=== PATIENT | female | born 1925 | race Caucasian/White ===

== ENCOUNTER 2016-04-30 07:27 | Inpatient (IN) | payer MEDICARE, OTHER ==
[~2016-04-30] VITALS: Ht 152.4 cm; Wt 66.2 kg
[2016-04-30] MEDS ORDERED: LOSARTAN POTASS25 MG ORAL (08:05)
[2016-04-30] MEDS ORDERED: NAMENDA5 MG ORAL (08:05)
[2016-04-30] MEDS ORDERED: RISPERDAL0.25 MG ORAL (08:05)
[2016-04-30] MEDS ORDERED: MECLIZINE HCL12.5 MG ORAL (08:05)
[2016-04-30] MEDS ORDERED: NUEDEXTA 20-101 EAC1 PO (08:05)
[2016-04-30] MEDS ORDERED: SIMVASTATIN5 MG ORAL (08:05)
[2016-04-30] MEDS ORDERED: ALLOPURINOL100 M1 ORAL (08:05)
[2016-04-30] MEDS ORDERED: ALENDRONATE SOD10 MG ORAL (08:05)
[2016-04-30 08:42] VITALS: BP 138/76
[2016-04-30 08:52] LABS: BASOPHILS % (AUTO) 0.9 % (0.0-2.0); LYMPHOCYTES % (AUTO) 19.7 % (20.0-45.0); MEAN CORPUSCULAR HEMOGLOBIN 28.1 PG (27.0-31.0); MEAN CORPUSCULAR HGB CONC 31.3 G/DL (32.0-36.0); MEAN CORPUSCULAR VOLUME 90 FL (80-99); MEAN PLATELET VOLUME 6.1 FL (6.5-10.1); NEUTROPHILS % (AUTO) 71.4 % (45.0-75.0); PLATELET COUNT 417 K/UL (150-450); RED BLOOD COUNT 4.41 M/UL (4.20-5.40); RED CELL DISTRIBUTION WIDTH 13.8 % (11.6-14.8); WHITE BLOOD COUNT 6.6 K/UL (4.8-10.8)
[2016-04-30 08:56] LABS: APPEARANCE,URINE CLEAR; KETONES,URINE NEGATIVE (NEGATIVE); LEUKOCYTE ESTERASE ,URINE NEGATIVE (NEGATIVE); NITRITE,URINE NEGATIVE (NEGATIVE); PH,URINE 6 (4.5-8.0); PROTEIN,URINE NEGATIVE (NEGATIVE); UROBILINOGEN,URINE NORMAL MG/DL (0.0-1.0)
[2016-04-30 09:07] LABS: BACTERIA,URINE OCCASIONAL /HPF; SQUAMOUS EPITHELIAL CELL,UR OCCASIONAL /LPF (NONE/OCC); WBC,URINE 0-2 /HPF (0 - 2)
[2016-04-30 09:07] LABS: ALANINE AMINOTRANSFERASE 44 U/L (3-33); ALBUMIN/GLOBULIN RATIO 1.4 (1.0-2.7); AMYLASE 73 U/L (10-110); ANION GAP 17 (5-15); ASPARTATE AMINO TRANSFERASE 28 U/L (5-40); CALCIUM 8.9 mg/dL (8.6-10.2); CARBON DIOXIDE 27 mEQ/L (20-30); CHLORIDE 94 mEQ/L (98-107); HEMOLYSIS 9; LIPASE 32 U/L (< 60); MAGNESIUM 2.2 mg/dL (1.7-2.5); PHOSPHORUS 2.7 mg/dL (2.5-4.8); POTASSIUM 3.8 mEQ/L (3.4-4.9); SODIUM 138 mEQ/L (135-145); TOTAL PROTEIN 6.7 g/dL (6.6-8.7)
[2016-04-30 09:08] LABS: TROPONIN I < 0.30 ng/mL (<=0.30)
[2016-04-30 09:10] LABS: REFLEX LACTIC ACID YES OR NO YES
--- NOTE | 2016-04-30 09:16 | Emergency Room Report ---
History of Present Illness General Chief Complaint: Generalized Weakness Source: Family Member Present Illness HPI The patient is an 89-year-old female brought in by family members for increased generalized weakness and confusion. Patient had gradual onset of symptoms. Patient had been increasingly confused and having difficulty with ambulation. Patient was noted a prior history of hypertension. Patient was noted be afebrile. She had not been vomiting. She denies any pain at this time. Allergies: Coded Allergies: No Known Allergies (Unverified , 04/30/16) Patient History Past Medical History: see triage record Reviewed Nursing Documentation: PMH: Agreed, PSxH: Agreed Nursing Documentation-PMH Hx Hypertension: Yes Review of Systems All Other Systems: limited - by mental status Physical Exam Vital Signs Date Time Temp Pulse Resp B/P Pulse Ox O2 Delivery O2 Flow Rate FiO2 04/30/16 07:50 98.8 77 16 126/77 97 Room Air Sp02 EP Interpretation: reviewed, normal General Appearance: normal inspection, well appearing, no apparent distress, alert, obese Head: atraumatic ENT: normal ENT inspection, hearing grossly normal, normal voice Neck: normal inspection, full range of motion, supple, no bony tend Respiratory: normal inspection, lungs clear, normal breath sounds, no respiratory distress, no retraction, no wheezing Cardiovascular #1: regular rate, rhythm, no edema Gastrointestinal: normal inspection, normal bowel sounds, non tender, soft, no guarding, no hernia Genitourinary: no CVA tenderness Musculoskeletal: normal inspection, back normal, normal range of motion Neurologic: normal inspection, alert, responsive, speech normal Psychiatric: normal inspection, judgement/insight normal, mood/affect normal Skin: normal inspection, normal color, no rash Medical Decision Making Diagnostic Impression: Primary Impression: General weakness Additional Impression: Lactic acidosis ER Course Patient presented for generalized weakness. Differential diagnosis included was not limited to anemia, urinary tract infection, electrolyte abnormality, hypothyroidism, myocardial infarction, myasthenia gravis, dehydration, among others. Because of complexity of patient's case laboratory testing and imaging studies were ordered. Patient was noted to have laboratory testing was notable for elevated lactic acid level. The patient was noted to have a normal white blood count is afebrile at this time. Patient was noted to have some confusion. The patient has no clear source for any infection. Dr. Deric Cisneros was contacted for inpatient management Laboratory Tests Test 04/30/16 08:10 04/30/16 08:30 White Blood Count 6.6 K/UL (4.8-10.8) Red Blood Count 4.41 M/UL (4.20-5.40) Hemoglobin 12.4 G/DL (12.0-16.0) Hematocrit 39.5 % (37.0-47.0) Mean Corpuscular Volume 90 FL (80-99) Mean Corpuscular Hemoglobin 28.1 PG (27.0-31.0) Mean Corpuscular Hemoglobin Concent 31.3 G/DL (32.0-36.0) L Red Cell Distribution Width 13.8 % (11.6-14.8) Platelet Count 417 K/UL (150-450) Mean Platelet Volume 6.1 FL (6.5-10.1) L Neutrophils (%) (Auto) 71.4 % (45.0-75.0) Lymphocytes (%) (Auto) 19.7 % (20.0-45.0) L Monocytes (%) (Auto) 8.0 % (1.0-10.0) Eosinophils (%) (Auto) 0.0 % (0.0-3.0) Basophils (%) (Auto) 0.9 % (0.0-2.0) Sodium Level 138 mEQ/L (135-145) Potassium Level 3.8 mEQ/L (3.4-4.9) Chloride Level 94 mEQ/L (98-107) L Carbon Dioxide Level 27 mEQ/L (20-30) Anion Gap 17 (5-15) H Blood Urea Nitrogen 19 mg/dL (7-23) Creatinine 1.0 mg/dL (0.5-0.9) H Estimate Glomerular Filtration Rate mL/min (>60) Glucose Level 103 mg/dL (74-106) Lactic Acid Level 2.20 mmol/L (0.66-2.22) Calcium Level 8.9 mg/dL (8.6-10.2) Phosphorus Level 2.7 mg/dL (2.5-4.8) Magnesium Level 2.2 mg/dL (1.7-2.5) Total Bilirubin 0.4 mg/dL (0.0-1.2) Aspartate Amino Transferase (AST) 28 U/L (5-40) Alanine Aminotransferase (ALT) 44 U/L (3-33) H Alkaline Phosphatase 49 U/L (35-104) Total Creatine Kinase 139 U/L (26-140) Creatine Kinase MB Pending Troponin I < 0.30 ng/mL (<=0.30) Pro-B-Type Natriuretic Peptide Pending Total Protein 6.7 g/dL (6.6-8.7) Albumin 4.0 g/dL (3.5-5.2) Globulin 2.7 g/dL Albumin/Globulin Ratio 1.4 (1.0-2.7) Amylase Level 73 U/L (10-110) Lipase 32 U/L (< 60) Urine Color Pale yellow Urine Appearance Clear Urine pH 6 (4.5-8.0) Urine Specific [place] 1.010 (1.005-1.035) Urine Protein Negative (NEGATIVE) Urine Glucose (UA) Negative (NEGATIVE) Urine Ketones Negative (NEGATIVE) Urine Occult Blood 2+ (NEGATIVE) H Urine Nitrite Negative (NEGATIVE) Urine Bilirubin Negative (NEGATIVE) Urine Urobilinogen Normal MG/DL (0.0-1.0) Urine Leukocyte Esterase Negative (NEGATIVE) Urine RBC 2-4 /HPF (0 - 2) H Urine WBC 0-2 /HPF (0 - 2) Urine Squamous Epithelial Cells Occasional /LPF Urine Bacteria Occasional /HPF (NONE) Chest X-Ray Diagnostic Results EP Interpretation: Yes Findings: no consolidation, no effusion, no pneumothorax, no acute cardiopulmonary disease Number of Views: 1 Last Vital Signs Date Time Temp Pulse Resp B/P Pulse Ox O2 Delivery O2 Flow Rate FiO2 04/30/16 08:42 98.8 78 16 138/76 97 Room Air Status: unchanged Disposition: ADMITTED INPATIENT Condition: Serious Referrals: NON PHYSICIAN (PCP) Ruddy Martin Apr 30, 2016 09:16
[2016-04-30 09:18] LABS: CKMB 2.9 ng/mL (< 3.8)
[2016-04-30 10:03] VITALS: BP 143/59
--- NOTE | 2016-04-30 11:13 | History & Physical ---
History and Physical History & Physicial HP dictated # [id number] ANAMARIA CHACKO Apr 30, 2016 11:13
[2016-04-30] MEDS ORDERED: Milk of Magnesia 30ml Ud ORAL PRN (11:30)
[2016-04-30 11:50] VITALS: BP 153/68
[2016-04-30] MEDS: Irbesartan 150mg tablet ORAL SCH (13:31)
[2016-04-30] MEDS: Memantine 10mg tab ORAL SCH (13:31)
[2016-04-30] MEDS: RisperiDONE 0.25mg tab ORAL SCH (13:32)
--- NOTE | 2016-04-30 15:17 | Diagnostic Imaging Report ---
Indication: SOB Technique: One view of the chest Comparison: none Findings: Patient's chin obscures the upper mediastinum and to a slight extent the lung apices. Inspiration is suboptimal. No definite infiltrate, effusion, or congestion. Impression: Somewhat limited exam. No definite acute process
[2016-04-30 15:52] VITALS: BP 158/69
--- NOTE | 2016-04-30 17:39 | History and Physical Report ---
DATE OF ADMISSION: 04/30/2016 CHIEF COMPLAINT: Generalized weakness, increasing confusion, failure to thrive HISTORY OF PRESENT ILLNESS: The patient is an 89-year-old [place] female, who lives with a caregiver. The patient has a history of Alzheimer's dementia which started about 9 years ago. Over the time, the patient has been getting worse in terms of her mental function. She sometimes even forgets the relationship to her son although she usually follows commands. She has also recently getting more difficulty getting out of bed and ambulating and needs a lot of help and this has been going on for about a month now and the patient has been getting more confused and weak. The patient finally was brought in by family to the emergency room. PAST MEDICAL HISTORY: Includes history of osteoporosis, hypertension, history of Alzheimer disease. SOCIAL HISTORY: No history of smoking or alcohol abuse. MEDICATIONS: Reviewed in the EMR. REVIEW OF SYSTEMS: Unobtainable. PHYSICAL EXAMINATION: GENERAL: The patient is an elderly female, in no acute distress. VITAL SIGNS: Blood pressure is 126/77, pulse 77, temperature 98.8, respiratory 16. HEENT: [place] conjunctivae. Anicteric sclerae. NECK: Supple. LUNGS: Clear to auscultation. HEART: S1 and S2 without murmurs or rubs. ABDOMEN: Soft and nontender. EXTREMITIES: No cyanosis or edema. LABORATORY FINDINGS: CBC shows a WBC of 6.6, hematocrit 39.5, hemoglobin 12.4, and platelet 417,000. The chemistry panel shows serum sodium 138, potassium 3.8, chloride 94, CO2 of 27, BUN is 19, creatinine 1.0, and glucose is 103. Lactic acid is 2.2, phosphorus 2.7, magnesium 2.2. AST 28, ALT 44. Albumin is 4. UA shows 2 to 4 RBCs per high-power field, 0 to 2 WBCs, otherwise unremarkable. ASSESSMENT: The patient is an 89-year-old [place] female, who was brought to the emergency room for failure to thrive, confusion, recent inability to walk. PLAN: The patient will be admitted. She will be seen by physical therapy. I will order a TSH to make sure the patient is hypothyroid. Dietitian will see the patient to see if she is taking adequate nutrition. Case was discussed with the family and all questions were answered. Deric Cisneros M.D. DR: Esperanza JOB#: [id number] CC: DAR
[2016-04-30 20:22] VITALS: BP 127/60
[2016-05-01] VITALS: BP 143/72
[2016-05-01] MEDS: ALENDRONATE 10 MG ORAL SCH (06:25)
[2016-05-01 06:46] LABS: CHOLESTEROL/HDL RATIO 2.9 (3.3-4.4)
[2016-05-01 06:59] LABS: THYROID STIMULATING HORMONE 3.48 uIU/mL (0.300-4.500)
[2016-05-01 07:32] LABS: HEMOGLOBIN A1C 5.3 % (< 6.0)
[2016-05-01 08:00] VITALS: BP 137/98
[2016-05-01] MEDS: LORazepam 0.5mg tab ORAL PRN (09:18)
[2016-05-01] MEDS: Irbesartan 150mg tablet ORAL SCH (09:18)
[2016-05-01] MEDS: RisperiDONE 0.25mg tab ORAL SCH (09:18)
[2016-05-01] MEDS: Memantine 10mg tab ORAL SCH (09:18)
[2016-05-01 12:00] VITALS: BP 145/76
[2016-05-01 15:41] LABS: APPEARANCE,URINE TURBID; KETONES,URINE NEGATIVE (NEGATIVE); LEUKOCYTE ESTERASE ,URINE 3+ (NEGATIVE); NITRITE,URINE NEGATIVE (NEGATIVE); PH,URINE 7 (4.5-8.0); PROTEIN,URINE 4+ (NEGATIVE); UROBILINOGEN,URINE NORMAL MG/DL (0.0-1.0)
[2016-05-01 15:48] LABS: RBC,URINE TNTC /HPF (0 - 2); WBC,URINE TNTC /HPF (0 - 2)
[2016-05-01 15:49] LABS: BACTERIA,URINE MANY /HPF
[2016-05-01 16:00] VITALS: BP 150/98
[2016-05-01 20:00] VITALS: BP 158/70
--- NOTE | 2016-05-01 20:19 | General Progress Note ---
Assessment/Plan Problem List: (1) Failure to thrive SNOMED: 47650923 (2) UTI (urinary tract infection) ICD Codes: N39.0 - Urinary tract infection, site not specified SNOMED: 39973622 (3) General weakness ICD Codes: R53.1 - Weakness SNOMED: 52371227 Assessment/Plan Abxs PT will follow Subjective Allergies: Coded Allergies: No Known Allergies (Unverified , 04/30/16) Subjective In NAD Objective Last 24 Hour Vital Signs Date Time Temp Pulse Resp B/P Pulse Ox O2 Delivery O2 Flow Rate FiO2 05/01/16 16:00 99.0 102 20 150/98 96 Room Air 05/01/16 12:00 97.3 94 20 145/76 96 Room Air 05/01/16 09:18 137/98 05/01/16 08:00 97.3 86 20 137/98 97 Room Air 05/01/16 00:00 97.2 20 143/72 98 Room Air 04/30/16 20:22 97.8 70 18 127/60 100 Room Air Intake and Output 04/30/16 05/01/16 19:00 07:00 Intake Total 480 ml 120 ml Balance 480 ml 120 ml Intake Oral 480 ml 120 ml # Voids 3 5 # Bowel Movements 1 Laboratory Tests 05/01/16 04:30: Hemoglobin A1c 5.3, Triglycerides Level 115, Cholesterol Level 219H, LDL Cholesterol 121H, HDL Cholesterol 75H, Cholesterol/HDL Ratio 2.9L, Thyroid Stimulating Hormone (TSH) 3.480 05/01/16 15:00: Urine Color Red, Urine Appearance Turbid, Urine pH 7, Urine Specific [place] 1.010, Urine Protein 4+H, Urine Glucose (UA) Negative, Urine Ketones Negative, Urine Occult Blood 5+H, Urine Nitrite Negative, Urine Bilirubin Negative, Urine Urobilinogen Normal, Urine Leukocyte Esterase 3+H, Urine RBC TntcH, Urine WBC TntcH, Urine Squamous Epithelial Cells None, Urine Bacteria ManyH Height (Feet): 5 Height (Inches): 0.00 Weight (Pounds): 146 Cardiovascular: normal rate Respiratory/Chest: lungs clear ANAMARIA CHACKO May 01, 2016 20:19
[2016-05-01 21:05] VITALS: BP 158/70
[2016-05-02] VITALS (7 sets, daily range): BP systolic 105–164; BP diastolic 53–79
[2016-05-02] MEDS: ALENDRONATE 10 MG ORAL SCH (06:05)
[2016-05-02] MEDS: Memantine 10mg tab ORAL SCH (08:34)
[2016-05-02] MEDS: Irbesartan 150mg tablet ORAL SCH ×2 (08:35→17:41)
[2016-05-02] MEDS: RisperiDONE 0.25mg tab ORAL SCH (08:35)
--- NOTE | 2016-05-02 13:06 | General Progress Note ---
Assessment/Plan Problem List: (1) Failure to thrive SNOMED: 70993349 (2) UTI (urinary tract infection) ICD Codes: N39.0 - Urinary tract infection, site not specified SNOMED: 36536704 (3) General weakness ICD Codes: R53.1 - Weakness SNOMED: 21060493 (4) HTN (hypertension) ICD Codes: I10 - Essential (primary) hypertension SNOMED: 17876728 Assessment/Plan Abxs await urine cultures PT Increase avapro Subjective Allergies: Coded Allergies: No Known Allergies (Unverified , 04/30/16) Subjective In NAD Objective Last 24 Hour Vital Signs Date Time Temp Pulse Resp B/P Pulse Ox O2 Delivery O2 Flow Rate FiO2 05/02/16 12:00 98.2 95 19 148/65 96 Room Air 05/02/16 08:35 147/73 05/02/16 08:00 98.1 84 20 105/60 96 Room Air 05/02/16 04:00 98.1 89 20 147/73 96 Room Air 05/02/16 00:00 98.2 98 18 155/72 98 Room Air 05/01/16 20:00 98.2 96 20 158/70 96 Room Air 05/01/16 16:00 99.0 102 20 150/98 96 Room Air Intake and Output 05/01/16 05/02/16 19:00 07:00 Intake Total 240 ml 180 ml Balance 240 ml 180 ml Intake Oral 240 ml 180 ml # Voids 5 6 # Bowel Movements 1 Laboratory Tests 05/01/16 15:00: Urine Color Red, Urine Appearance Turbid, Urine pH 7, Urine Specific [place] 1.010, Urine Protein 4+H, Urine Glucose (UA) Negative, Urine Ketones Negative, Urine Occult Blood 5+H, Urine Nitrite Negative, Urine Bilirubin Negative, Urine Urobilinogen Normal, Urine Leukocyte Esterase 3+H, Urine RBC TntcH, Urine WBC TntcH, Urine Squamous Epithelial Cells None, Urine Bacteria ManyH Height (Feet): 5 Height (Inches): 0.00 Weight (Pounds): 146 Cardiovascular: normal rate Respiratory/Chest: lungs clear ANAMARIA CHACKO May 02, 2016 13:06
[2016-05-02] MEDS: LORazepam 0.5mg tab ORAL PRN (16:29)
[2016-05-03] VITALS: BP 128/62
[2016-05-03 04:00] VITALS: BP 112/57
[2016-05-03] MEDS: ALENDRONATE 10 MG ORAL SCH (05:58)
[2016-05-03 08:08] VITALS: BP 137/62
[2016-05-03] MEDS: Irbesartan 150mg tablet ORAL SCH (08:28)
[2016-05-03] MEDS: RisperiDONE 0.25mg tab ORAL SCH (08:28)
[2016-05-03] MEDS: Memantine 10mg tab ORAL SCH (08:29)
--- NOTE | 2016-05-03 10:50 | Cardiology Report ---
APPROVED REPORT EKG Measurement Heart [id number] [id number] Normal sinus rhythm Low voltage QRS Borderline ECG
[2016-05-03] MEDS ORDERED: AVAPRO150 MG ORAL (11:50)
[2016-05-03] MEDS ORDERED: LIPITOR10 MG ORAL (11:50)
[2016-05-03] MEDS ORDERED: MOM30 ML ORAL (11:50)
[2016-05-03] MEDS ORDERED: NAMENDA10 MG ORAL (11:50)
[2016-05-03] MEDS ORDERED: RISPERDAL0.25 MG ORAL (11:50)
[2016-05-03] MEDS ORDERED: CIPROFLOXACIN250 MG ORAL (11:50)
[2016-05-03] MEDS ORDERED: ATIVAN0.5 MG ORAL (11:50)
--- NOTE | 2016-05-03 11:57 | Consultation ---
Consult Note Assessment/Plan DC dictated #[id number] ANAMARIA CHACKO May 03, 2016 11:57
[2016-05-03 12:00] VITALS: BP 136/92
--- NOTE | 2016-05-04 03:18 | Discharge Summary ---
DATE OF ADMISSION: 04/30/2016 DATE OF DISCHARGE: 05/03/2016 CHIEF COMPLAINT: The patient was brought in to the hospital by family for generalized weakness, increasing confusion, and failure to thrive. HISTORY OF PRESENT ILLNESS: This is an 89-year-old [place] female, who is with history of Alzheimer's dementia. She was admitted with above reported complaints. HOSPITAL COURSE: The patient had UNCNS. It shows Gram negatives consistent with urinary tract infection. The patient was treated with Cipro orally. The patient was seen by physical therapy as well as occupational therapy. The patient was able to ambulate with front wheel walker 20 feet distance and then refused to walk further. Physical therapy recommended the patient would benefit from continuation of PT. The patient has also had a history of hypertension and was started on Avapro 150 mg twice a day. The blood pressure got under control. Last one was 137/62, on 05/03/2016. Eventually, the [facility] was [facility]. DISCHARGE DIAGNOSES: 1. Urinary tract infection with gram negative. 2. Failure to thrive. 3. Confusion, likely as a result of dementia and urinary tract infection. 4. Inability to walk. Again, likely as result of combination of comorbidity dementia, as well as urinary tract infection and age. DISCHARGE MEDICATIONS: Please refer to discharge medication list. Deric Cisneros M.D. DR: SHAE JOB#: [id number] CC: DAR
== END 2016-05-03 16:10 | DRG 690 ==
LOC: EMR 08:04 → 4W 08:47 → EDBEDREQ 09:00 → 4W 11:34
DX: N39.0 Urinary tract infection, site not specified (principal); E87.2 Acidosis; G30.9 Alzheimer's disease, unspecified; B96.89 Other specified bacterial agents as the cause of diseases classified elsewhere; F02.80 Dementia in other diseases classified elsewhere, unspecified severity, without behavioral disturbance, psychotic disturbance, mood disturbance, and anxiety; R62.7 Adult failure to thrive; R41.0 Disorientation, unspecified; M81.0 Age-related osteoporosis without current pathological fracture; I10 Essential (primary) hypertension; R26.2 Difficulty in walking, not elsewhere classified
CPT/HCPCS: 36415; 71010; 80053; 80061; 81001; 81003; 82150; 82550; 82553; 83036; 83605; 83690; 83735; 83880; 84100; 84443; 84484; 85025; 87040; 87086; 87181; 93005